=== PATIENT | male | born 1975 | race African-American/Black ===

== ENCOUNTER 2017-09-14 21:51 | Emergency (ER) | payer SELFPAY ==
[2017-09-14] MEDS ORDERED: HYDROCODONE/APAP 10/325 TAB ONE (23:06)
[2017-09-14] MEDS ORDERED: KETOROLAC 30 MG/ML INJ ONE (23:06)
--- NOTE | 2017-09-14 23:07 | ER ---
Nurse's Notes [facility] Name: Angelo Waters Age: 42 yrs Sex: Male : 1975 Arrival Date: 09/14/2017 Time: 21:54 Bed 30 Private MD: Diagnosis: Pain in left forearm-musculoskeletal Presentation: 09/14 22:07 Presenting complaint: Patient states: Pt. states that he has numbness and tingling from rk2 the elbow down to finger tips, onset x approx. 45 min. Transition of care: patient was not received from another setting of care. Onset of symptoms was September 14, 2017. Care prior to arrival: None. 22:07 Method Of Arrival: Ambulatory rk2 22:07 Acuity: OWEN 3 rk2 Triage Assessment: 22:09 General: Appears in no apparent distress. Behavior is calm, cooperative. Pain: rk2 Complains of pain in left arm. Historical: - Allergies: 22:09 No Known Allergies; rk2 - Immunization history:: Pneumococcal vaccine is not up to date, Flu vaccine is not up to date. - Social history:: Smoking status: Patient uses tobacco products, 6 cig/day. - Family history:: not pertinent. Screenin:00 Abuse screen: Denies threats or abuse. Nutritional screening: No deficits noted. cr4 Tuberculosis screening: No symptoms or risk factors identified. Fall Risk None identified. Assessment: 22:19 General: Appears uncomfortable, Behavior is calm, cooperative. Pain: Complains of pain cr4 in left antecubital area Pain radiates to left hand Pain currently is 6 out of 10 on a pain scale. at worst was 8 out of 10 on a pain scale. Quality of pain is described as burning, shooting, tingling, Pain began 1 hour ago. Is continuous. Neuro: Level of Consciousness is awake, alert, obeys commands, Program Clerk are weak on left in left Speech is normal. Cardiovascular: No deficits noted. Denies chest pain, fatigue, lightheadedness, nausea, shortness of breath. Respiratory: No deficits noted. GI: No deficits noted. : No deficits noted. EENT: No deficits noted. Derm: No deficits noted. Musculoskeletal: Capillary refill < 3 seconds, Range of motion: limited in left antecubital area Reports weakness in left hand and left arm. 23:15 Reassessment: No changes from previously documented assessment. Patient and/or family cr4 updated on plan of care and expected duration. Pain level reassessed. Patient is alert, oriented x 3, equal unlabored respirations, skin warm/dry/pink. 23:50 Reassessment: No changes from previously documented assessment. Patient and/or family cr4 updated on plan of care and expected duration. Pain level reassessed. Patient is alert, oriented x 3, equal unlabored respirations, skin warm/dry/pink. Patient states feeling better. Vital Signs: 22:11 BP 112 / 92; Pulse 63; Resp 17; Temp 98.0; Pulse Ox 99% ; rk2 23:15 BP 119 / 89; Pulse 63; Resp 18; Pulse Ox 99% ; Pain 6/10; cr4 09/15 00:15 BP 115 / 71; Pulse 61; Resp 16; Pulse Ox 100% ; Pain 6/10; cr4 ED Course: 09/14 21:54 Patient arrived in ED. sb2 22:09 Triage completed. rk2 22:15 Arm band placed on. cr4 22:31 Rogelio Jacobson MD is Attending Physician. tad 23:00 Patient has correct armband on for positive identification. Bed in low position. Side cr4 rails up X2. Warm blanket given. 23:00 No provider procedures requiring assistance completed. cr4 23:06 Reggie Nolan MD is Referral Physician. tad 23:15 X-ray completed. Portable x-ray completed in exam room. Patient tolerated procedure kw well. 23:17 Elbow Left 3 View XRAY In Process Unspecified. EDMS 23:23 Affected limb iced. cr4 23:23 Sling applied to left arm. cr4 09/15 00:00 Patient did not have IV access during this emergency room visit. cr4 Administered Medications: 09/14 23:24 Drug: TORadol 60 mg Route: IM; Site: right deltoid; cr4 09/15 00:08 Follow up: Response: No adverse reaction; Pain is decreased cr4 09/14 23:24 Drug: [place] 10 mg-325 mg 1 tabs Route: PO; cr4 09/15 00:08 Follow up: Response: No adverse reaction; Pain is decreased cr4 Outcome: 09/14 23:06 Discharge ordered by . [facility] 09/15 00:09 Patient left the ED. cr4 00:15 Discharged to home ambulatory, with friend. cr4 00:15 Condition: stable 00:15 Discharge instructions given to patient, friend, Instructed on discharge instructions, follow up and referral plans. medication usage, Demonstrated understanding of instructions, follow-up care, medications, Prescriptions given X 2. Signatures: Dispatcher [employer] Rogelio Hoover MD MD cha Ruiz, Claudia RN RN cr4 Emily Cannon Rhonda RN RN rk2 Maria E Santos sb2
--- NOTE | 2017-09-14 23:07 | EDPHYS ---
Physician Documentation [facility] Name: Angelo Waters Age: 42 yrs Sex: Male : 1975 Arrival Date: 09/14/2017 Time: 21:54 Bed 30 Private MD: ED Physician Rogelio Jacobson HPI: 09/14 22:57 This 42 yrs old Black Male presents to ER via Ambulatory with complaints of Numbness Of tad Arm. 22:57 The patient or guardian complains of decreased range of motion, pain, that is acute. tad The complaints affect the left antecubital area. Context: The problem was sustained at work. Onset: The symptoms/episode began/occurred just prior to arrival. Treatment prior to arrival includes: no previous treatment. Modifying factors: The symptoms are alleviated by remaining still, the symptoms are aggravated by movement. Severity of symptoms: At their worst the symptoms were moderate. Historical: - Allergies: 22:09 No Known Allergies; rk2 - Immunization history:: Pneumococcal vaccine is not up to date, Flu vaccine is not up to date. - Social history:: Smoking status: Patient uses tobacco products, 6 cig/day. - Family history:: not pertinent. ROS: 22:57 Constitutional: Negative for fever, chills, and weight loss, Eyes: Negative for injury, tad pain, redness, and discharge, ENT: Negative for injury, pain, and discharge, Neck: Negative for injury, pain, and swelling, Cardiovascular: Negative for chest pain, palpitations, and edema, Respiratory: Negative for shortness of breath, cough, wheezing, and pleuritic chest pain, Abdomen/GI: Negative for abdominal pain, nausea, vomiting, diarrhea, and constipation, Back: Negative for injury and pain, : Negative for injury, bleeding, discharge, and swelling, Skin: Negative for injury, rash, and discoloration, Neuro: Negative for headache, weakness, numbness, tingling, and seizure, Psych: Negative for depression, anxiety, suicide ideation, homicidal ideation, and hallucinations, Allergy/Immunology: Negative for hives, rash, and allergies, Endocrine: Negative for neck swelling, polydipsia, polyuria, polyphagia, and marked weight changes, Hematologic/Lymphatic: Negative for swollen nodes, abnormal bleeding, and unusual bruising. 22:57 MS/extremity: Positive for decreased range of motion, pain, tenderness, of the left antecubital area. Exam: 22:57 Constitutional: This is a well developed, well nourished patient who is awake, alert, tad and in no acute distress. Head/Face: Normocephalic, atraumatic. Eyes: Pupils equal round and reactive to light, extra-ocular motions intact. Lids and lashes normal. Conjunctiva and sclera are non-icteric and not injected. Cornea within normal limits. Periorbital areas with no swelling, redness, or edema. ENT: Nares patent. No nasal discharge, no septal abnormalities noted. Tympanic membranes are normal and external auditory canals are clear. Oropharynx with no redness, swelling, or masses, exudates, or evidence of obstruction, uvula midline. Mucous membranes moist. Neck: Trachea midline, no thyromegaly or masses palpated, and no cervical lymphadenopathy. Supple, full range of motion without nuchal rigidity, or vertebral point tenderness. No Meningismus. Chest/axilla: Normal chest wall appearance and motion. Nontender with no deformity. No lesions are appreciated. Cardiovascular: Regular rate and rhythm with a normal S1 and S2. No gallops, murmurs, or rubs. Normal PMI, no JVD. No pulse deficits. Respiratory: Lungs have equal breath sounds bilaterally, clear to auscultation and percussion. No rales, rhonchi or wheezes noted. No increased work of breathing, no retractions or nasal flaring. Abdomen/GI: Soft, non-tender, with normal bowel sounds. No distension or tympany. No guarding or rebound. No evidence of tenderness throughout. Back: No spinal tenderness. No costovertebral tenderness. Full range of motion. Male : Normal genitalia with no discharge or lesions. Skin: Warm, dry with normal turgor. Normal color with no rashes, no lesions, and no evidence of cellulitis. Neuro: Awake and alert, GCS 15, oriented to person, place, time, and situation. Cranial nerves II-XII grossly intact. Motor strength 5/5 in all extremities. Sensory grossly intact. Cerebellar exam normal. Normal gait. Psych: Awake, alert, with orientation to person, place and time. Behavior, mood, and affect are within normal limits. 22:57 Musculoskeletal/extremity: ROM: limited active range of motion, limited passive range of motion, Circulation is intact in all extremities. Sensation intact. Compartment Syndrome exam of affected extremity: is normal. DVT Exam: no swelling, negative Homans' sign noted on exam, no appreciated bluish discoloration, no erythema, no increased warmth, pain, tenderness. Vital Signs: 22:11 BP 112 / 92; Pulse 63; Resp 17; Temp 98.0; Pulse Ox 99% ; rk2 23:15 BP 119 / 89; Pulse 63; Resp 18; Pulse Ox 99% ; Pain 6/10; cr4 09/15 00:15 BP 115 / 71; Pulse 61; Resp 16; Pulse Ox 100% ; Pain 6/10; cr4 MDM: 09/14 22:31 [facility] medically screened. [facility] 22:57 Data reviewed: vital signs, nurses notes, radiologic studies. [facility] 09/14 22:56 Order name: Elbow Left 3 View XRAY [facility] 09/14 22:56 Order name: Sling; Complete Time: 00:08 [facility] 09/14 22:56 Order name: Ice pack; Complete Time: 23:23 [facility] Administered Medications: 23:24 Drug: TORadol 60 mg Route: IM; Site: right deltoid; cr4 09/15 00:08 Follow up: Response: No adverse reaction; Pain is decreased cr4 09/14 23:24 Drug: [place] 10 mg-325 mg 1 tabs Route: PO; cr4 09/15 00:08 Follow up: Response: No adverse reaction; Pain is decreased cr4 Disposition: 09/14/17 23:06 Discharged to Home. Impression: Pain in left forearm - musculoskeletal. - Condition is Stable. - Discharge Instructions: Musculoskeletal Pain. - Prescriptions for Ibuprofen 600 mg Oral Tablet - take 1 tablet by ORAL route every 8 hours As needed take with food; 20 tablet. Tylenol- Codeine #3 300-30 mg Oral Tablet - take 2 tablets by ORAL route every 6 hours As needed; 24 tablet. - Medication Reconciliation Form, Thank You Letter, Antibiotic Education, Prescription Opioid Use form. - Follow up: Private Physician; When: 2 - 3 days; Reason: Recheck today's complaints, Continuance of care, Re-evaluation by your physician. Follow up: Reggie Nolan MD; When: 1 - 2 days; Reason: Recheck today's complaints, Re-evaluation by your physician. - Problem is new. - Symptoms have improved. Signatures: Dispatcher [employer] EDMS Kavon, Rogelio, MD MD tad Busby, Leah, RN RN cr4 Angelique Avery RN RN rk2
--- NOTE | 2017-09-15 08:48 | RAD REPORT ---
EXAM DESCRIPTION: RAD - Elbow Left 3 View - 09/14/2017 11:19 pm CLINICAL HISTORY: Nontraumatic numbness and tingling COMPARISON: None. FINDINGS: No fracture is identified and no elevated posterior fat pad. There is no dislocation or pe riosteal reaction noted. No foreign body or other soft tissue abnormality. IMPRESSION: Negative left elbow examination for acute or significant finding.
== END 2017-09-15 00:09 | disposition home or self-care (01) ==
LOC: ER 21:51
DX: M79.632 Pain in left forearm (principal); F17.210 Nicotine dependence, cigarettes, uncomplicated
CPT/HCPCS: 96372; 99284

== ENCOUNTER 2021-11-23 15:04 | Emergency (ER) | payer SELFPAY ==
[2021-11-23 16:08] LABS: Urine Blood Negative (Negative); Urine Glucose Negative (Negative); Urine Protein Negative (Negative); Urine Specific Gravity <=1.005 (1.005-1.030); Urine pH 6.5 (5.0-7.0)
[2021-11-23 16:11] LABS: Absolute Lymphocytes (CBC) 1.1 K/uL (0.7-4.9); Hematocrit 42.8 % (39.6-49.0); Lymphocytes % 16.9 % (15.3-44.8); MPV 7.5 fL (7.6-11.3); RBC Red Blood Cell Count 4.71 M/uL (4.33-5.43)
[2021-11-23 16:20] LABS: Barbiturates NEGATIVE (NEGATIVE); Benzodiazepines NEGATIVE (NEGATIVE); Cocaine NEGATIVE (NEGATIVE); METHAMPHETAM NEGATIVE (NEGATIVE); Methadone NEGATIVE (NEGATIVE); Opiates NEGATIVE (NEGATIVE); Phencyclidine NEGATIVE (NEGATIVE); THC Cannibis NEGATIVE (NEGATIVE)
[2021-11-23 16:21] LABS: Protime INR 1.04
[2021-11-23 16:39] LABS: Salicylates Level 4.1 mg/dL (2.8-20)
[2021-11-23 16:40] LABS: ALT/SGPT 25 U/L (12-78); AST/SGOT 15 U/L (15-37); Albumin 3.8 g/dL (3.4-5.0); Alkaline Phosphatase 69 U/L (45-117); BUN Blood Urea Nitrogen 6 mg/dL (7-18); Bicarbonate 25 mmol/L (21-32); Bilirubin Direct < 0.1 mg/dL (0-0.2); Bilirubin Total 0.5 mg/dL (0.2-1.0); Glomerular Filtration Rate 91 ml/min (=/>90); Glucose Level 86 mg/dL (74-106); Lithium < 0.2 mmol/L (0.6-1.2); Potassium 3.7 mmol/L (3.5-5.1); Protein, Total 7.6 g/dL (6.4-8.2); Sodium Level 138 mmol/L (136-145)
[2021-11-23] MEDS ORDERED: NA CHLORIDE 0.9% 1,000 ML ONE (17:38)
--- NOTE | 2021-11-23 21:29 | EDPHYS ---
Physician Documentation [facility] Name: Angelo Waters Age: 46 yrs Sex: Male : 1975 Arrival Date: 11/23/2021 Time: 15:06 Bed 17 Private MD: [facility] Physician Rogelio Jacobson Historical: - Allergies: 11/23 15:28 No Known Allergies; vg1 - Home Meds: 15:28 [place] Carbonate Oral [Active]; Risperdal Oral [Active]; vg1 - Immunization history:: Client reports receiving the 2nd dose of the Covid vaccine. - Social history:: Smoking status: Patient reports the use of cigarette tobacco products, denies chronic smoking, but will smoke occasionally, Patient uses alcohol. Vital Signs: 15:23 BP 107 / 55; Pulse 85; Resp 16; Temp 99.3(TE); Pulse Ox 100% ; Weight 82.55 kg; Height vg1 5 ft. 4 in. (162.56 cm); Pain 0/10; 17:53 BP 113 / 85; Pulse 83; Resp 17; Pulse Ox 100% on R/A; rodriges 20:21 BP 113 / 83; Pulse 78; Resp 17 S; Pulse Ox 100% on R/A; lg3 15:23 Body Mass Index 31.24 (82.55 kg, 162.56 cm) vg1 MDM: 15:32 Patient medically screened. [facility] 11/23 15:37 Order name: Acetaminophen; Complete Time: 18:10 cp 11/23 15:37 Order name: Basic Metabolic Panel; Complete Time: 18:10 cp 11/23 17:07 Interpretation: Normal except: BUN 6. cp 11/23 15:37 Order name: CBC with Diff; Complete Time: 17:07 cp 11/23 17:07 Interpretation: Normal except: MPV 7.5. cp 11/23 15:37 Order name: ETOH Level; Complete Time: 17:07 cp 11/23 17:07 Interpretation: Abnormal: ETOH 154. cp 11/23 15:37 Order name: Hepatic Function; Complete Time: 18:10 cp 11/23 17:08 Interpretation: Normal except: GLOB 3.8; A/G 1.0. cp 11/23 15:37 Order name: PT-INR; Complete Time: 17:07 cp 11/23 15:37 Order name: Ptt, Activated; Complete Time: 17:07 cp 11/23 18:10 Interpretation: Reviewed. 11/23 15:37 Order name: Salicylate; Complete Time: 17:07 cp 11/23 15:37 Order name: Urine Drug Screen; Complete Time: 17:07 cp 11/23 15:37 Order name: EKG; Complete Time: 15:38 cp 11/23 15:37 Order name: [place]; Complete Time: 17:07 cp 11/23 17:08 Interpretation: Abnormal: LI < 0.2. 11/23 16:08 Order name: Urine Dipstick-Ancillary; Complete Time: 17:07 EDMS 11/23 19:38 Order name: ETOH Level; Complete Time: 21:20 cp 11/23 21:20 Interpretation: Abnormal: ETOH 87. 11/23 15:37 Order name: EKG - Nurse/Tech; Complete Time: 16:49 cp 11/23 15:37 Order name: IV Saline Lock; Complete Time: 16:49 cp 11/23 15:37 Order name: Labs collected and sent; Complete Time: 16:49 11/23 15:37 Order name: Suicide Screening ([place]); Complete Time: 16:49 cp 11/23 15:37 Order name: Urine Dipstick-Ancillary (obtain specimen); Complete Time: 16:49 cp Administered Medications: 17:42 Drug: NS 0.9% 1000 ml Route: IV; Rate: 500 ml/hr; Site: right jugular; rodriges Disposition Summary: 11/23/21 21:29 Discharge Ordered Location: Home cp Problem: new cp Symptoms: have improved cp Condition: Stable cp Diagnosis - Alcohol use, unspecified cp Followup: cp - With: Private Physician - When: 1 - 2 days - Reason: Recheck today's complaints Discharge Instructions: - Discharge Summary Sheet cp - Alcohol Use Disorder cp Forms: - Medication Reconciliation Form cp - Thank You Letter cp - Antibiotic Education cp - Prescription Opioid Use cp - Work release form lg3 Signatures: Dispatcher [employer] Rogelio Hoover MD MD cha Page, Corey, PA PA cp Garcia, Victoria, RN RN vg1 Aleshia Prater RN RN rodriges
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
[2021-11-23 22:41] VITALS: TEMP 99.3; O2SAT 100
[2021-11-23 22:44] VITALS: BP 113/83
--- NOTE | 2021-11-24 07:19 | EKG ---
Test Date: 2021-11-23 Test Time: 16:32:31 Fixture Relamper: WAYLON MEASUREMENT RESULTS: Intervals: Rate: 84 SC: 132 QRSD: 84 QT: 390 QTc: 460 [place]: P: 30 SC: 132 QRS: -25 T: 12 INTERPRETIVE STATEMENTS: Normal sinus rhythm Normal ECG No previous ECG available for comparison Electronically Signed On 11-24-21 07:17:16 CDT by Theodore Garza
== END 2021-11-23 22:05 | disposition home or self-care (01) ==
LOC: ER 15:04
DX: Z72.89 Other problems related to lifestyle (principal); F17.210 Nicotine dependence, cigarettes, uncomplicated
CPT/HCPCS: 36415; 80048; 80076; 80178; 80307; 80320; 80329; 81003; 85025; 85610; 85730; 93005; J7030